=== PATIENT | male | born 1945 | race Two or more races ===

== ENCOUNTER 2023-05-11 10:30 | Day surgery (SDC) | payer OTHER ==
[2023-05-10 09:45] LABS: Basophils # (auto) 0 10 ^3/uL (0-0.2); Basophils % (auto) 0.3 % (0.0-2.0); Eosinophils # (auto) 0.2 10 ^3/uL (0-0.8); Eosinophils % (auto) 2.6 % (0.0-7.0); Hematocrit 39.3 % (41.0-53.0); Hemoglobin 13.2 g/dL (13.5-17.5); Lymphocytes # (auto) 1.7 10 ^3/uL (0.4-5.4); Lymphocytes % (auto) 21.4 % (10.0-50.0); Mean Corpuscular Hemoglobin 29.6 pg (28.0-32.0); Mean Corpuscular Hgb Conc. 33.5 g/dL (32.0-36.0); Mean Corpuscular Volume 88.1 fL (80.0-100.0); Monocytes # (auto) 1.1 10 ^3/uL (0-1.3); Monocytes % (auto) 13.9 % (0.0-12.0); Neutrophils # (auto) 4.9 10 ^3/uL (1.6-8.6); Neutrophils % (auto) 61.8 % (37.0-80.0); Red Blood Cells 4.46 10^6/uL (4.5-5.90); Red Cell Distribution Width 13.4 % (11.8-14.3); White Blood Cell 7.9 10^3/uL (4.4-10.8)
[2023-05-10 09:54] LABS: INR 1.06 (0.9-1.15); Partial Thromboplastin Time 30.1 SEC (24.5-34.5); Prothrombin Time 11.1 sec (9.3-11.8)
[2023-05-10 10:10] LABS: Alanine Aminotransferase 28 U/L (7-40); Albumin 4.3 g/dL (3.2-4.8); Alkaline Phosphatase 108 U/L (46-116); Anion Gap 7 (5-15); Aspartate Aminotransferase 24 U/L (13-40); BUN/Creatinine Ratio 8.8 (10.0-20.0); Blood Urea Nitrogen 10 mg/dL (9-23); Calcium 9.3 mg/dL (8.5-10.1); Carbon Dioxide 28 mmol/L (20-30); Chloride 101 mmol/L (98-107); Glucose 132 mg/dL (74-106); Potassium 3.5 mmol/L (3.5-5.1); Sodium 136 mmol/L (136-145)
[2023-05-10 10:11] LABS: Bilirubin, Total 0.6 mg/dL (0.2-1.0); Total Protein 7.1 g/dL (5.7-8.2)
[~2023-05-11] VITALS: Ht 175.3 cm; Wt 77.1 kg
[~2023-05-11 10:30] MED LIST: AMLO1TAB23 PO; ASPI1TAB20 PO; ATOR10TA PO; DICL1GEL72 EX; FINA5TAB4 PO; GABA400C PO; HYDR12.59 PO; IBUP-1454 PO; LISI40TA16 PO; METF-370 PO; OXYB5TAB10 PO; PANT40TA2 PO; SUCR1TAB22 OR; TAMS0.4C36 PO
[2023-05-11 11:24] VITALS: O2SAT 99
[2023-05-11] MEDS: LIDOCAINE VISCOUS 2% 15ML UD ONE (11:32)
[2023-05-11] MEDS ORDERED: SODIUM CHLORIDE LOCK 10 ML ONE (11:33)
[2023-05-11] MEDS: diphenhdrAMINE HCL 50 MG/1 ML VL ONE (11:34)
[2023-05-11] MEDS: MIDAZOLAM HCL 5 MG/ML-1ML VIAL ONE (11:34)
[2023-05-11] MEDS: fentaNYL CITRATE 100 MCG/2 ML VL ONE (11:34)
[2023-05-11 12:45] VITALS: BP 125/58; PULSE 57; RESP 13; O2SAT 95
== END 2023-05-11 12:45 | disposition home or self-care (01) ==
LOC: GI 10:30
PROVIDERS: ATTEND Internal Medicine Gastroenterology
DX: R10.13 Epigastric pain (principal); K29.80 Duodenitis without bleeding; K29.50 Unspecified chronic gastritis without bleeding; K44.9 Diaphragmatic hernia without obstruction or gangrene; K21.00 Gastro-esophageal reflux disease with esophagitis, without bleeding; I10 Essential (primary) hypertension; E78.5 Hyperlipidemia, unspecified; Z79.899 Other long term (current) drug therapy; Z86.73 Personal history of transient ischemic attack (TIA), and cerebral infarction without residual deficits; Z86.16 Personal history of COVID-19; Z98.890 Other specified postprocedural states
CPT/HCPCS: 36415; 43239; 80053; 82962; 85025; 85610; 85730; 88305; 88312; 88342; J1200; J2250; J3010; J7030; 99152

== ENCOUNTER 2023-05-19 10:23 | Emergency (ER) | payer OTHER ==
[~2023-05-19] VITALS: Ht 175.3 cm; Wt 75.1 kg
[2023-05-19] MEDS: SODIUM CHLORIDE 0.9% 1,000 ML IVB ONE (11:03)
[2023-05-19] MEDS: PANTOPRAZOLE 40 MG/10 ML VIAL INJ IV ONE (11:06)
[2023-05-19] MEDS: PROCHLORPERAZINE EDISYLATE 5 MG/ML 2ML VIAL IV ONE (11:06)
[2023-05-19 11:18] LABS: Basophils # (auto) 0 10 ^3/uL (0-0.2); Basophils % (auto) 0.5 % (0.0-2.0); Eosinophils # (auto) 0.1 10 ^3/uL (0-0.8); Eosinophils % (auto) 2.2 % (0.0-7.0); Hematocrit 36.8 % (41.0-53.0); Hemoglobin 12.4 g/dL (13.5-17.5); Lymphocytes # (auto) 1.7 10 ^3/uL (0.4-5.4); Lymphocytes % (auto) 26.8 % (10.0-50.0); Mean Corpuscular Hemoglobin 29.6 pg (28.0-32.0); Mean Corpuscular Hgb Conc. 33.8 g/dL (32.0-36.0); Mean Corpuscular Volume 87.6 fL (80.0-100.0); Monocytes # (auto) 0.4 10 ^3/uL (0-1.3); Monocytes % (auto) 6.2 % (0.0-12.0); Neutrophils # (auto) 4.1 10 ^3/uL (1.6-8.6); Neutrophils % (auto) 64.3 % (37.0-80.0); Nucleated Red Blood Cells % 0.1 %; Red Cell Distribution Width 13.5 % (11.8-14.3); White Blood Cell 6.4 10^3/uL (4.4-10.8)
[2023-05-19 11:29] LABS: INR 1.07 (0.9-1.15); Partial Thromboplastin Time 26.5 SEC (24.5-34.5); Prothrombin Time 11.2 sec (9.3-11.8)
[2023-05-19 11:35] LABS: Alanine Aminotransferase 36 U/L (7-40); Albumin 4.1 g/dL (3.2-4.8); Alkaline Phosphatase 99 U/L (46-116); Anion Gap 7 (5-15); Aspartate Aminotransferase 28 U/L (13-40); BUN/Creatinine Ratio 12.3 (10.0-20.0); Bilirubin, Total 0.6 mg/dL (0.2-1.0); Blood Urea Nitrogen 13 mg/dL (9-23); Calcium 9.2 mg/dL (8.7-10.4); Carbon Dioxide 26 mmol/L (20-30); Chloride 104 mmol/L (98-107); Glucose 89 mg/dL (74-106); Lipase 28 U/L (12-53); Potassium 3.9 mmol/L (3.5-5.1); Sodium 137 mmol/L (136-145); Total Protein 6.9 g/dL (5.7-8.2)
[2023-05-19] MEDS: IOHEXOL 300 MG/ML 100ML BOTTLE IJ ONE (12:15)
[2023-05-19 14:00] LABS: Urine Bacteria NONE SEEN /hpf (None Seen); Urine Blood Negative /uL (Negative); Urine Clarity Clear (Clear); Urine Color Yellow (Yellow); Urine Hyaline Cast FEW /lpf (0 - 2); Urine Mucus FEW (None Seen); Urine Protein, UAD Negative (Negative); Urine Specific Gravity 1.021 (1.001-1.035); Urine Urobilinogen Normal (Negative); Urine WBC 32 /hpf (0 - 3)
[2023-05-19] MEDS ORDERED: CIPR-173 PO (14:55)
[2023-05-19 15:03] VITALS: BP 108/64; PULSE 61; RESP 17; TEMP 98.4; O2SAT 97
== END 2023-05-19 15:05 | disposition home or self-care (01) ==
LOC: ER 10:23
DX: N39.0 Urinary tract infection, site not specified (principal); K80.20 Calculus of gallbladder without cholecystitis without obstruction; I10 Essential (primary) hypertension; K21.9 Gastro-esophageal reflux disease without esophagitis; Z90.89 Acquired absence of other organs; Z79.82 Long term (current) use of aspirin; Z79.1 Long term (current) use of non-steroidal anti-inflammatories (NSAID); Z79.899 Other long term (current) drug therapy
CPT/HCPCS: 36415; 74177; 80053; 81001; 83690; 85025; 85610; 85730; 96361; 96374; 96375; 99285; C9113; J0780; J7030; Q9967

== ENCOUNTER → 2023-06-07 | Outpatient (CLI) | payer OTHER ==
[~2023-06-07] MED LIST changes: +CIPR-173 PO
[2023-06-07 11:12] LABS: Erythrocyte Sedimentation Rate 26 mm/hr (0-20)
[2023-06-08 07:06] LABS: Immunoglobulin A 387 mg/dL (61-437)
[2023-06-09 12:06] LABS: t-Transglutaminase (tTG) IgA <2 U/mL (0-3)
[2023-06-10 05:08] LABS: Endomysial IgA Antibody Negative (Negative)
== END | disposition home or self-care (01) ==
LOC: LAB 10:06
PROVIDERS: ATTEND Internal Medicine Gastroenterology
DX: K29.00 Acute gastritis without bleeding (principal); R10.13 Epigastric pain; K80.00 Calculus of gallbladder with acute cholecystitis without obstruction
CPT/HCPCS: 36415; 82784; 83516; 83690; 85652; 86255

== ENCOUNTER → 2023-10-04 | Outpatient (CLI) | payer OTHER ==
[~2023-10-04] MED LIST changes: -OXYB5TAB10 PO; +OXYB5TAB14 PO; -SUCR1TAB22 OR; +SUCR1TAB31 OR
== END | disposition home or self-care (01) ==
LOC: XYW 15:23
PROVIDERS: ATTEND Internal Medicine Gastroenterology
DX: K80.20 Calculus of gallbladder without cholecystitis without obstruction (principal)
CPT/HCPCS: 78226; A9537

== ENCOUNTER → 2023-12-06 | Outpatient (CLI) | payer OTHER ==
[~2023-12-06] MED LIST changes: -TAMS0.4C36 PO; +TAMS0.4C39 PO
== END | disposition home or self-care (01) ==
LOC: XYW 13:24
PROVIDERS: ATTEND Internal Medicine
DX: Z01.810 Encounter for preprocedural cardiovascular examination (principal)
CPT/HCPCS: 93306

== ENCOUNTER → 2024-05-11 | Outpatient (CLI) | payer OTHER ==
[~2024-05-11] VITALS: Ht 175.3 cm; Wt 74.8 kg
[2024-05-11] MEDS: REGADENOSON 0.4 MG/5 ML SYRG IV ONE ×2 (11:47→11:48)
--- NOTE | 2024-05-11 17:17 | DVHSR ---
APPROVED REPORT Exam: Nuclear Stress Test BMI: 0 Stress Test Details HR Max Heart Rate (APMHR): 143.777153 bpm Target HR (85% APMHR): 121.525783 bpm BP ECG Stress ECG Conclusion lvef 76% minor apical ischemia NM EXAM: Myocardial Perfusion REST/STRESS Imaging Protocol: Rest Tc-99m/Stress Tc-99m 1 day Resting Data Rest SPECT myocardial perfusion imaging was performed in supine position 60 minutes following the int ravenous injection of 11.3 mCi of Tc-99m Sestamibi. Time of rest injection: 0955 Time of rest imagin Administration Route: IV Administration Site: Right AC Pharmacologic Stress Pharmacologic stress test was performed by injecting Regadenoson 0.4 mg IV push followed by the intra venous injection of 31.5 mCi of Tc-99m Sestamibi. Time of stress injection: 1148 Time of stress imagin Administration Route: IV Administration Site: Right AC Gated Stress SPECT was performed 60 minutes after stress injection. The images were gated to evaluate regional wall motion and calculate left ventricular ejection fracti on. Stress only was performed in the Supine position. Nuclear Conclusion lvef 76% minor apical ischemia
== END | disposition home or self-care (01) ==
LOC: XYW 09:18
PROVIDERS: ATTEND Internal Medicine
DX: Z01.810 Encounter for preprocedural cardiovascular examination (principal); I24.89 Other forms of acute ischemic heart disease; R07.9 Chest pain, unspecified; K82.0 Obstruction of gallbladder
CPT/HCPCS: 78452; 93017; A9500; J2785

== ENCOUNTER 2024-09-12 09:15 | Inpatient (IN) | payer OTHER ==
[2024-09-11 10:27] LABS: Urine Bacteria None Seen /hpf (None Seen)
[2024-09-11 11:05] LABS: Urine Blood 1+ /uL (Negative); Urine Clarity Clear (Clear); Urine Color Light-Yellow (Yellow); Urine Mucus FEW (None Seen); Urine Protein, UAD Negative (Negative); Urine Specific Gravity 1.015 (1.001-1.035); Urine Squamous Epithelial Cell FEW /hpf (<5); Urine Urobilinogen Normal (Negative); Urine WBC 18 /HPF (0-3)
[2024-09-11 11:07] LABS: Basophils # (auto) 0 10 ^3/uL (0-0.2); Basophils % (auto) 0.5 % (0.0-2.0); Eosinophils # (auto) 0.1 10 ^3/uL (0-0.8); Eosinophils % (auto) 2.7 % (0.0-7.0); Hemoglobin 13.2 g/dL (13.5-17.5); Lymphocytes # (auto) 1.4 10 ^3/uL (0.4-5.4); Lymphocytes % (auto) 26.7 % (10.0-50.0); Mean Corpuscular Hemoglobin 29.6 pg (28.0-32.0); Mean Corpuscular Hgb Conc. 34.7 g/dL (32.0-36.0); Mean Corpuscular Volume 85.3 fL (80.0-100.0); Monocytes # (auto) 0.4 10 ^3/uL (0-1.3); Monocytes % (auto) 7.5 % (0.0-12.0); Neutrophils # (auto) 3.2 10 ^3/uL (1.6-8.6); Neutrophils % (auto) 62.6 % (37.0-80.0); Nucleated Red Blood Cells % 0.1 %; Platelet Count (auto) 186 10^3/uL (140-450); Red Blood Cells 4.46 10^6/uL (4.5-5.90); Red Cell Distribution Width 13.7 % (11.8-14.3); White Blood Cell 5.2 10^3/uL (4.4-10.8)
[2024-09-11 11:19] LABS: INR 1.03 (0.9-1.15); Partial Thromboplastin Time 25.2 SEC (24.5-34.5); Prothrombin Time 10.9 sec (9.3-11.8)
[2024-09-11 11:21] LABS: Alanine Aminotransferase 14 U/L (7-40); Albumin 4.2 g/dL (3.2-4.8); Alkaline Phosphatase 78 U/L (46-116); Anion Gap 8 (5-15); Aspartate Aminotransferase 20 U/L (<34); BUN/Creatinine Ratio 14.6 (10.0-20.0); Bilirubin, Total 0.5 mg/dL (0.2-1.0); Blood Urea Nitrogen 15 mg/dL (9-23); Calcium 9.1 mg/dL (8.7-10.4); Carbon Dioxide 29 mmol/L (20-31); Chloride 102 mmol/L (98-107); Sodium 139 mmol/L (136-145)
[2024-09-11 11:22] LABS: Glucose 142 mg/dL (74-106); Potassium 3.4 mmol/L (3.5-5.1)
[~2024-09-12] VITALS: Ht 175.3 cm; Wt 77.4 kg
[~2024-09-12 09:15] MED LIST changes: -CIPR-173 PO
[2024-09-12] MEDS ORDERED: HYDROmorphone HCL 2 MG/ML VL/or syr ONE (12:09)
[2024-09-12] MEDS ORDERED: KETOROLAC TROMETH 30 MG/ML 1ML VIAL ONE (12:09)
[2024-09-12] MEDS ORDERED: DexAMETHasone SOD PHOS 10MG/1ML VIAL INJ ONE (12:09)
[2024-09-12] MEDS ORDERED: fentaNYL CITRATE 100 MCG/2 ML VL ONE (12:09)
[2024-09-12] MEDS ORDERED: GLYCOPYRROLATE 0.2 MG/ML 1ML VIAL ONE (12:10)
[2024-09-12] MEDS ORDERED: MIDAZOLAM HCL 2MG/2ML 2ml VIAL (1mg/ml) ONE (12:10)
[2024-09-12] MEDS ORDERED: LIDOCAINE 2% (LOCAL ANESTH.) PF 5ml SDV ONE (12:10)
[2024-09-12] MEDS ORDERED: ONDANSETRON HCL 4 MG/2 ML VIAL ONE (12:10)
[2024-09-12] MEDS ORDERED: PROPOFOL 10 MG/ML 20 ML IV ONE (12:10)
[2024-09-12] MEDS: ceFAZolin 2 GM/D5W50ml 50 ML IV ONE (13:20)
[2024-09-12] MEDS: BUPIVACAINE HCL 0.25% P/F 10 ML VIAL ONE (13:40)
[2024-09-12] MEDS: LIDOCAINE W/ EPINEPHRINE 1% 20ML VIAL ONE (13:40)
[2024-09-12] MEDS ORDERED: ceFAZolin 1GM/50ML 50 ML IV SCH (14:00)
[2024-09-12] MEDS ORDERED: HYDROmorphone HCL 2 MG/ML VL/or syr IV PRN ×2 (14:00→14:15)
[2024-09-12 14:05] VITALS: PULSE 78; RESP 14; O2SAT 98
--- NOTE | 2024-09-12 14:13 | DVHOP ---
DATE OF SURGERY: 09/12/2024 PREOPERATIVE DIAGNOSES: * Cholelithiasis. * Cholecystitis. SURGEON: Rei Larsen MD GENETIC COUNSELOR: Mesfin Laird NP ANESTHESIA: General endotracheal. ANESTHESIOLOGIST: Dr. Quinteros PROCEDURE: Laparoscopy and laparoscopic cholecystectomy. DESCRIPTION OF PROCEDURE: Under general endotracheal anesthesia with the patient's skin prepped and draped, supraumbilical incision was made and Veress needle inserted by the hanging drop technique to establish pneumoperitoneum to 15 mmHg pressure by insufflation with carbon dioxide. With the abdomen fully distended, the needle was removed and replaced with a 5 mm trocar port through which a 0-degree viewing laparoscope was inserted and under direct vision, 5 and 10 mm ports inserted through the right anterior axillary line and the subxiphoid skin, respectively. The laparoscopy revealed a shrunken intrahepatic gallbladder covered with a massive amount of omentum. Mobilization of the gallbladder was made somewhat difficult by enlarged liver; however, eventually we were able to pull the gallbladder cephalad and visualize the cystic duct and cystic artery. The common duct was visualized and avoided. The cystic duct was traced into the hepatocystic triangle to minimize the potential for inadvertent injury to the common bile duct. The cystic duct was circumferentially dissected and skeletonized and divided between metallic clips away from the common bile duct, again attempting to avoid any injury to the common bile duct. Similarly, the cystic artery was divided between metallic clips close to the gallbladder. Subsequently, the shrunken gallbladder was resected from its liver bed via electrocautery and traction and was placed into the specimen extraction bag and retrieved from the peritoneal cavity through the subxiphoid 10-mm port site. The right upper quadrant was then profusely irrigated. The subhepatic space was inspected for hemostasis. Hemostasis was found to be complete. At the termination of the procedure, there was no bleeding from either the liver bed or from the port sites. Instrumentation was withdrawn. Pneumoperitoneum was evacuated. The patient's wounds were approximated using Monocryl sutures, Dermabond glue, and Steri-Strips. The patient remained stable throughout the procedure, left the operating room following an accurate needle and sponge counts. No family members were present in the waiting room. Rei Lasren MD PF/JORGE TID: [id number] RECEIPT: [id number]
[2024-09-12] MEDS ORDERED: ONDANSETRON HCL 4 MG/2 ML VIAL IV ONE (14:15)
[2024-09-12] MEDS ORDERED: NITROGLYCERIN 0.4 MG SL TAB SL PRN (15:15)
[2024-09-12] MEDS ORDERED: MORPHINE SULFATE INJ 2 MG/ml SYRG IV PRN (15:15)
--- NOTE | 2024-09-12 15:54 | DVHHP2 ---
Review of Systems Allergies: Coded Allergies: NO KNOWN ALLERGIES (Unverified , 05/11/24) Medications Current Medications Medications Dose Ordered Sig/Courtney Route Start Time Stop Time Status Last Admin Dose Admin Cefazolin Sodium 50 ml @ 100 mls/hr Q8HR IV 09/12/24 14:00 Metronidazole 100 ml @ 100 mls/hr Q8HR IV 09/12/24 14:00 Hydromorphone HCl 1 mg Q4HPRN PRN IV 09/12/24 14:00 Nitroglycerin 0.4 mg Q5MINP PRN SL 09/12/24 15:15 Morphine Sulfate 2 mg Q30M PRN IV 09/12/24 15:15 Exam Vital Signs Vital Signs Date Time Temp Pulse Resp B/P (MAP) Pulse Ox O2 Delivery O2 Flow Rate FiO2 09/12/24 14:05 78 14 98 Mask 5.0 09/12/24 14:05 98 09/12/24 14:05 96.9 150/77 (101) 96.9 Labs/Xrays Labs Test 09/12/24 15:34 09/11/24 10:24 Range/Units POC Glucose 111 H 70-106 mg/dl White Blood Count 5.2 4.4-10.8 10^3/uL Red Blood Count 4.46 L 4.5-5.90 10^6/uL Hemoglobin 13.2 L 13.5-17.5 g/dL Hematocrit 38.0 L 41.0-53.0 % Mean Corpuscular Volume 85.3 80.0-100.0 fL Mean Corpuscular Hemoglobin 29.6 28.0-32.0 pg Mean Corpuscular Hemoglobin Concent 34.7 32.0-36.0 g/dL Red Cell Distribution Width 13.7 11.8-14.3 % Platelet Count 186 140-450 10^3/uL Mean Platelet Volume 8.0 6.9-10.8 fL Neutrophils (%) (Auto) 62.6 37.0-80.0 % Lymphocytes (%) (Auto) 26.7 10.0-50.0 % Monocytes (%) (Auto) 7.5 0.0-12.0 % Eosinophils (%) (Auto) 2.7 0.0-7.0 % Basophils (%) (Auto) 0.5 0.0-2.0 % Neutrophils # (Auto) 3.2 1.6-8.6 10 ^3/uL Lymphocytes # (Auto) 1.4 0.4-5.4 10 ^3/uL Monocytes # (Auto) 0.4 0-1.3 10 ^3/uL Eosinophils # (Auto) 0.1 0-0.8 10 ^3/uL Basophils # (Auto) 0 0-0.2 10 ^3/uL Nucleated Red Blood Cells 0.1 % Prothrombin Time 10.9 9.3-11.8 sec Prothrombin Time INR 1.03 0.9-1.15 Activated Partial Thromboplast Time 25.2 24.5-34.5 SEC Urine Color Light-yellow Yellow Urine Clarity Clear Clear Urine pH 6.0 5.0-9.0 Urine Specific [place] 1.015 1.001-1.035 Urine Protein Negative Negative Urine Ketones Negative Negative Urine Blood 1+ H Negative /uL Urine Nitrite Negative Negative Urine Bilirubin Negative Negative Urine Urobilinogen Normal Negative mg/dL Urine Leukocyte Esterase 2+ Negative /uL Urine RBC 7 0 - 3 /hpf Urine Microscopic WBC 18 H 0-3 /HPF Urine Squamous Epithelial Cells Few <5 /hpf Urine Bacteria None seen None Seen /hpf Urine Mucus Few None Seen Urine Glucose Normal Normal mg/dL Sodium Level 139 136-145 mmol/L Potassium Level 3.4 L 3.5-5.1 mmol/L Chloride Level 102 98-107 mmol/L Carbon Dioxide Level 29 20-31 mmol/L Anion Gap 8 5-15 Blood Urea Nitrogen 15 9-23 mg/dL Creatinine 1.03 0.700-1.30 mg/dL Glomerular Filtration Rate Calc 74 >90 mL/min BUN/Creatinine Ratio 14.6 10.0-20.0 Serum Glucose 142 H 74-106 mg/dL Calcium Level 9.1 8.7-10.4 mg/dL Total Bilirubin 0.5 0.2-1.0 mg/dL Aspartate Amino Transferase (AST) 20 <34 U/L Alanine Aminotransferase (ALT) 14 7-40 U/L Alkaline Phosphatase 78 46-116 U/L Total Protein 7.0 5.7-8.2 g/dL Albumin 4.2 3.2-4.8 g/dL Assessment/Plan Assessment/Plan SEE DICTATED NOTE Plan discussed with: Patient My Orders Orders - ELAINE BADILLO MD Procedure Category Date Status Time Admit ADMIT 09/12/24 Transmitted 15:09 Oxygen By Nasal RT 09/12/24 Transmitted Cannula 15:09 Nitroglycerin PHA 09/12/24 In Process Sublingual (Ntrostat 15:15 Morphine Sulfate PHA 09/12/24 In Process Injection 15:15 Stat Ekg For Chest SERENITY 09/12/24 In Process Pain 15:09 Notify Md Of Changes [facility] 09/12/24 In Process From Base 15:09 Emergency Dysrhythmia [facility] 09/12/24 In Process Protocol 15:09 Rhythm Strips Once [facility] 09/12/24 In Process Every Shift 15:09 Date of Service: Sep 12, 2024 Billing Provider: ELAINE BADILLO MD Common Visit Codes: 89997-FBDFJZA INP/OBS CARE (HIGH) Secondary Visit Codes: 91389-[id number] CARE PLAN 30 MINUTES ELAINE BADILLO MD Sep 12, 2024 15:54
[2024-09-12] MEDS: metroNIDAZOLE 500MG/100ML 100 ML IV SCH (15:55)
[2024-09-12] MEDS ORDERED: HYDROcodone-ACET 5/325MG TAB PO PRN (16:00)
[2024-09-12] MEDS ORDERED: hydrALAZINE HCL 20 MG/ML VL IV PRN (16:00)
[2024-09-12] MEDS ORDERED: ONDANSETRON HCL 4 MG/2 ML VIAL IV PRN (16:00)
[2024-09-12] MEDS ORDERED: DEXTROSE (50%) 50ML SYRG IV PRN (16:00)
[2024-09-12] MEDS ORDERED: ACETAMINOPHEN 325 MG TAB PO PRN (16:00)
--- NOTE | 2024-09-12 16:08 | DVHHP ---
ADMIT DATE: 09/12/2024 HISTORY OF PRESENT ILLNESS: The patient is a 79-year-old gentleman who is admitted after he underwent surgery for laparoscopic cholecystectomy. The patient at this time denies any significant abdominal pain. No chest pain. No shortness of breath. No nausea or vomiting. REVIEW OF SYSTEMS: Review of rest of systems is otherwise currently negative. PAST MEDICAL HISTORY: The patient has previous history of diabetes, hypertension, previous history of CVA, cervical spine surgery, and BPH. MEDICATIONS: Include Protonix, Flomax, finasteride, amlodipine, gabapentin, hydrochlorothiazide, and lisinopril. ALLERGIES: No known drug allergies. SOCIAL HISTORY: Lives at home. No history of smoking. FAMILY HISTORY: Negative. PHYSICAL EXAMINATION: GENERAL: The patient is awake and alert. VITAL SIGNS: Temperature of 97.8, pulse 78 per minute, and blood pressure 150/77. SHEENT: Unremarkable. NECK: There is no JVD. No pedal edema. LUNGS: Equal bilaterally and no added sounds. CARDIOVASCULAR SYSTEM: S1 and S2 are regular. No murmurs. ABDOMEN: Soft. Bowel sounds are hypoactive. NEUROLOGIC: Nonfocal. MUSCULOSKELETAL: Normal. ASSESSMENT AND PLAN: * Diabetes mellitus, for which he will be placed on sliding scale insulin and an A1c will be checked. * Hypertension, for which she will be resumed on amlodipine. * BPH. * Hyperlipidemia. * History of CVA. * Status post laparoscopic cholecystectomy for cholelithiasis and chronic cholecystitis, for which he will be placed on pain medications and IV fluids. ADVANCED CARE PLANNING: The patient is a FULL CODE-Time spent was 19 minutes. MD JACI López/ELIAS TID: [id number] RECEIPT: [id number] MTDD
[2024-09-12] MEDS: D5W/SOD CHL 0.45%/KCL 20MEQ 1,000 ML IV SCH (17:20)
[2024-09-12] MEDS: InsuLIN REG 1unit/0.01ml Soln (100units/ml) SC SCH (18:00)
[2024-09-12] MEDS: ACCU-CHEK COMFORT CURVE STRIP VI SCH (18:00)
[2024-09-12 18:11] VITALS: RESP 16
[2024-09-12 20:00] VITALS: PULSE 63; RESP 18; O2SAT 93
[2024-09-12] MEDS: ceFAZolin 1GM/50ML 50 ML IV SCH (20:48)
[2024-09-12 21:00] VITALS: BP 128/68; PULSE 65; RESP 18; TEMP 98.7; O2SAT 93
[2024-09-13 01:00] VITALS: BP 124/72; PULSE 63; RESP 18; TEMP 98.5; O2SAT 92
[2024-09-13 05:00] VITALS: BP 140/76; PULSE 61; RESP 18; TEMP 97.9; O2SAT 95
[2024-09-13 06:33] LABS: Basophils # (auto) 0 10 ^3/uL (0-0.2); Basophils % (auto) 0.1 % (0.0-2.0); Eosinophils # (auto) 0 10 ^3/uL (0-0.8); Hematocrit 36.6 % (41.0-53.0); Hemoglobin 12.7 g/dL (13.5-17.5); Lymphocytes # (auto) 0.6 10 ^3/uL (0.4-5.4); Lymphocytes % (auto) 6.2 % (10.0-50.0); Mean Corpuscular Hemoglobin 29.6 pg (28.0-32.0); Mean Corpuscular Hgb Conc. 34.8 g/dL (32.0-36.0); Mean Corpuscular Volume 85.1 fL (80.0-100.0); Monocytes # (auto) 0.4 10 ^3/uL (0-1.3); Monocytes % (auto) 4.6 % (0.0-12.0); Neutrophils # (auto) 8.4 10 ^3/uL (1.6-8.6); Neutrophils % (auto) 89.1 % (37.0-80.0); Platelet Count (auto) 192 10^3/uL (140-450); Red Cell Distribution Width 13.5 % (11.8-14.3); White Blood Cell 9.4 10^3/uL (4.4-10.8)
[2024-09-13 06:51] LABS: Alanine Aminotransferase 27 U/L (7-40); Albumin 3.8 g/dL (3.2-4.8); Alkaline Phosphatase 71 U/L (46-116); Anion Gap 10 (5-15); Aspartate Aminotransferase 33 U/L (<34); BUN/Creatinine Ratio 16.5 (10.0-20.0); Bilirubin, Total 0.5 mg/dL (0.2-1.0); Blood Urea Nitrogen 20 mg/dL (9-23); Calcium 9.5 mg/dL (8.7-10.4); Carbon Dioxide 25 mmol/L (20-31); Chloride 103 mmol/L (98-107); Glucose 209 mg/dL (74-106); Potassium 3.8 mmol/L (3.5-5.1); Sodium 138 mmol/L (136-145); Total Protein 6.3 g/dL (5.7-8.2)
[2024-09-13 09:35] VITALS: BP 140/71; PULSE 60; RESP 16; TEMP 97.8; O2SAT 97
[2024-09-13] MEDS: PANTOPRAZOLE 40 MG/10 ML VIAL INJ IV SCH (09:42)
[2024-09-13] MEDS: amLODIPine BESYLATE 5 MG TAB PO SCH (09:43)
--- NOTE | 2024-09-13 11:46 | DVHDS2 ---
Discharge Summary Date of Admission Sep 12, 2024 at 15:09 Date of Discharge: Sep 13, 2024 Labs/Diagnostic Data: Laboratory Results Test 09/13/24 05:50 09/13/24 05:00 09/11/24 10:24 White Blood Count 9.4 10^3/uL (4.4-10.8) Red Blood Count 4.30 10^6/uL (4.5-5.90) Hemoglobin 12.7 g/dL (13.5-17.5) Hematocrit 36.6 % (41.0-53.0) Mean Corpuscular Volume 85.1 fL (80.0-100.0) Mean Corpuscular Hemoglobin 29.6 pg (28.0-32.0) Mean Corpuscular Hemoglobin Concent 34.8 g/dL (32.0-36.0) Red Cell Distribution Width 13.5 % (11.8-14.3) Platelet Count 192 10^3/uL (140-450) Mean Platelet Volume 8.0 fL (6.9-10.8) Neutrophils (%) (Auto) 89.1 % (37.0-80.0) Lymphocytes (%) (Auto) 6.2 % (10.0-50.0) Monocytes (%) (Auto) 4.6 % (0.0-12.0) Eosinophils (%) (Auto) 0.0 % (0.0-7.0) Basophils (%) (Auto) 0.1 % (0.0-2.0) Neutrophils # (Auto) 8.4 10 ^3/uL (1.6-8.6) Lymphocytes # (Auto) 0.6 10 ^3/uL (0.4-5.4) Monocytes # (Auto) 0.4 10 ^3/uL (0-1.3) Eosinophils # (Auto) 0 10 ^3/uL (0-0.8) Basophils # (Auto) 0 10 ^3/uL (0-0.2) Nucleated Red Blood Cells 0.0 % Sodium Level 138 mmol/L (136-145) Potassium Level 3.8 mmol/L (3.5-5.1) Chloride Level 103 mmol/L (98-107) Carbon Dioxide Level 25 mmol/L (20-31) Anion Gap 10 (5-15) Blood Urea Nitrogen 20 mg/dL (9-23) Creatinine 1.21 mg/dL (0.700-1.30) Glomerular Filtration Rate Calc 61 mL/min (>90) BUN/Creatinine Ratio 16.5 (10.0-20.0) Serum Glucose 209 mg/dL (74-106) Hemoglobin A1c 6.1 % A1C (<5.7) Calcium Level 9.5 mg/dL (8.7-10.4) Total Bilirubin 0.5 mg/dL (0.2-1.0) Aspartate Amino Transferase (AST) 33 U/L (<34) Alanine Aminotransferase (ALT) 27 U/L (7-40) Alkaline Phosphatase 71 U/L (46-116) Total Protein 6.3 g/dL (5.7-8.2) Albumin 3.8 g/dL (3.2-4.8) POC Glucose 233 mg/dl (70-106) Prothrombin Time 10.9 sec (9.3-11.8) Prothrombin Time INR 1.03 (0.9-1.15) Activated Partial Thromboplast Time 25.2 SEC (24.5-34.5) Urine Color Light-yellow (Yellow) Urine Clarity Clear (Clear) Urine pH 6.0 (5.0-9.0) Urine Specific [place] 1.015 (1.001-1.035) Urine Protein Negative (Negative) Urine Ketones Negative (Negative) Urine Blood 1+ /uL (Negative) Urine Nitrite Negative (Negative) Urine Bilirubin Negative (Negative) Urine Urobilinogen Normal mg/dL (Negative) Urine Leukocyte Esterase 2+ /uL (Negative) Urine RBC 7 /hpf (0 - 3) Urine Microscopic WBC 18 /HPF (0-3) Urine Squamous Epithelial Cells Few /hpf (<5) Urine Bacteria None seen /hpf (None Seen) Urine Mucus Few (None Seen) Urine Glucose Normal mg/dL (Normal) Other Laboratory Tests 09/13/24 05:50 Brief Hx & Hospital Course: see dictated note Condition at Discharge: Fair Final Diagnosis/Problems List lap betty Discharge Disposition: Home Discharge Instruct/Medications Diet: Cardiac 2g Na,low cholest Activity: No Restrictions, As Tolerated Follow Up/Referral: schedule appt with dr Larsen in 1wk Medications: resume home meds script to pharmacy Discharge Statement: "Patient was advised to return to the ER or call 911 if any headaches, dizziness, shortness of breath, chest pain, abdominal pain, bleeding, fevers, or worsening of medical condition. Patient was counseled about treatment plan, medications, possible side effects, patientverbalized understanding. All questions were answered to the best of my ability. This discharge took greater then 30 minutes in planning, reviewing documentation, counseling the patient, and discussing with other team members." ASSESSMENT ASSESSMENT Assessment faina hernández Date of Service: Sep 13, 2024 Billing Provider: ELAINE BADILLO MD Common Visit Codes: 52065-SLI/OBS DISCH DAY >30min ELAINE BADILLO MD Sep 13, 2024 11:46
[2024-09-13] MEDS ORDERED: HYDR1TAB97 PO (11:50)
[2024-09-13] MEDS ORDERED: CEPH500C PO (11:50)
[2024-09-13] MEDS ORDERED: DOCU-94 PO (11:50)
--- NOTE | 2024-09-13 11:52 | DVHDS ---
DATE OF DISCHARGE: 09/13/2024 HISTORY OF PRESENT ILLNESS: The patient is a 79-year-old gentleman who was admitted after he underwent laparoscopic cholecystectomy for cholelithiasis and chronic cholecystitis. The patient has a history of diabetes, hypertension, previous CVA, and BPH. HOSPITAL COURSE: The patient has done well postoperatively. He has been tolerating oral diet and ambulating. The patient will now be discharged home to resume his home medications as well as to be on cephalexin 500 mg t.i.d. for 7 days along with Spickard p.r.n. for pain and Colace p.r.n. for constipation. He will follow up with Dr. Larsen in 1 week. FINAL DIAGNOSES: * Diabetes mellitus. * Hypertension. * BPH. * Hyperlipidemia. * History of CVA. * Status post laparoscopic cholecystectomy for cholelithiasis and chronic cholecystitis. Time spent in discharge planning was 37 minutes. MD JACI López/BA TID: [id number] RECEIPT: [id number]
--- NOTE | 2024-09-13 12:03 | DVHPN2 ---
Progress Note Date Seen: Sep 13, 2024 Medical Necessity Reason Pt with a Central, PICC or Fol: No Objective vital signs Vital Sign Date Time Temp Pulse Resp B/P (MAP) Pulse Ox O2 Delivery O2 Flow Rate FiO2 09/13/24 09:43 140/71 09/13/24 09:35 97.8 60 16 97 97.8 09/13/24 08:00 Room Air* 0 21 Total Intake and Output 09/12/24 09/12/24 09/13/24 15:00 23:00 07:00 Intake Total 150 ml 350 ml 350 ml Balance 150 ml 350 ml 350 ml medications Current Medications Medications Dose Ordered Sig/Courtney Route Start Time Stop Time Status Last Admin Dose Admin Metronidazole 100 ml @ 100 mls/hr Q8HR IV 09/12/24 14:00 09/13/24 05:07 100 MLS/HR Hydromorphone HCl 1 mg Q4HPRN PRN IV 09/12/24 14:00 Nitroglycerin 0.4 mg Q5MINP PRN SL 09/12/24 15:15 Morphine Sulfate 2 mg Q30M PRN IV 09/12/24 15:15 Diagnostic Test (Pha) 1 strip Q6HR 09/12/24 18:00 09/13/24 11:25 1 STRIP Insulin Human Regular Q6HR SC 09/12/24 18:00 09/13/24 06:16 4 UNITS Dextrose 50 ml UD PRN IV 09/12/24 16:00 Amlodipine Besylate 10 mg DAILY PO 09/13/24 10:00 09/13/24 09:43 10 MG Hydralazine HCl 10 mg Q6HP PRN IV 09/12/24 16:00 Acetaminophen/ Hydrocodone Bitart 1 tab Q6HPRN PRN PO 09/12/24 16:00 Acetaminophen 650 mg Q6HP PRN PO 09/12/24 16:00 Ondansetron HCl 4 mg Q6HPRN PRN IV 09/12/24 16:00 Pantoprazole Sodium 40 mg DAILY IV 09/13/24 10:00 09/13/24 09:42 40 MG Potassium Chloride/Dextrose/ Sod Cl 1,000 ml @ 120 mls/hr Q8H20M IV 09/12/24 16:15 09/13/24 09:45 120 MLS/HR Cefazolin Sodium 50 ml @ 100 mls/hr Q8HR IV 09/12/24 21:00 09/13/24 05:05 100 MLS/HR laboratory and microbiology Laboratory Tests 09/13/24 05:50 Test 09/13/24 05:50 Range/Units Serum Glucose 209 H 74-106 mg/dL Problem List/Assessment/Plan Problem List/Assessment/Plan 09/13/24 doing well, abdomen non tender, wounds clean and well approximated, cleared for discharge Plan discussed with: Patient STUART ESQUIVEL MD Sep 13, 2024 12:03
[2024-09-13 13:07] VITALS: BP 129/71; PULSE 62; RESP 18; TEMP 36.6; O2SAT 96
== END 2024-09-13 13:44 | disposition home or self-care (01) | DRG 419 ==
LOC: SUR 09:15 → OVERFLOW 15:09 → WEST WING 17:57
PROVIDERS: ADMIT Internal Medicine; ATTEND Internal Medicine
PROC: 0FT44ZZ Resection of Gallbladder, Percutaneous Endoscopic Approach (ICD-10-PCS; principal; 2024-09-12 13:03)
DX: K80.10 Calculus of gallbladder with chronic cholecystitis without obstruction (principal); E78.5 Hyperlipidemia, unspecified; N40.0 Benign prostatic hyperplasia without lower urinary tract symptoms; E11.9 Type 2 diabetes mellitus without complications; I10 Essential (primary) hypertension; Z86.73 Personal history of transient ischemic attack (TIA), and cerebral infarction without residual deficits; Z79.899 Other long term (current) drug therapy
CPT/HCPCS: 36415; 80053; 81001; 82962; 83036; 85025; 85610; 85730; 86850; 86900; 86901; A4565; G0378; J1100; J1815; J1885; J2003; J2250; J2405; J2470; J2704; J3490